=== PATIENT | male | born 1965 | race Caucasian/White ===

== ENCOUNTER 2022-01-26 14:50 | Emergency (ER) | payer OTHER ==
[~2022-01-26] VITALS: Ht 175.3 cm; Wt 81.8 kg
[2022-01-26 15:11] VITALS: BP 147/92; TEMP 97.9
[2022-01-26 16:27] VITALS: PULSE 93
== END 2022-01-26 16:27 | disposition home or self-care (01) ==
LOC: COL.ER 14:50
DX: M79.662 Pain in left lower leg (principal)

== ENCOUNTER → 2022-01-27 | Outpatient (CLI) | payer OTHER | LOC: COL.VAS 07:46 | DX: I82.432 Acute embolism and thrombosis of left popliteal vein (principal); I82.462 Acute embolism and thrombosis of left calf muscular vein ==